=== PATIENT | female | born 1975 | race Caucasian/White ===

== ENCOUNTER 2024-08-22 08:17 | Emergency (ER) | payer BC, SELFPAY ==
[2024-08-22 08:26] VITALS: BP 149/89; PULSE 70; RESP 16; TEMP 36.8; O2SAT 97; BMI 25.9
--- NOTE | 2024-08-22 08:35 | XR_ITS ---
Examination: AP chest single view Technique one AP portable upright chest single view Exam date and time: August 22, 2024 0938 hours INDICATIONS: Dyspnea shortness of breath this week FINDINGS: Normal heart size Lungs are clear. The osseous structures are intact IMPRESSION: No active disease
--- NOTE | 2024-08-22 08:37 | EDNOTE_ITS ---
ED Abdominal Pain RME/HPI General Chief Complaint: Shortness of Breath/Dyspnea Stated complaint: SOB, HURTS TO SWALLOW Time seen by provider: 08/22/24 08:29 Arrival date/time: 08/22/24 08:17 RME / HPI RME / HPI narrative: This section includes all my notes and documentations, including HPI, PE, and ED course. Andrew Man MD HPI: 49-year-old female here with about 12-hour history of epigastric pain radiating into the chest with nausea and shortness of breath and odynophagia. No fever or chills. No cough or congestion. No body aches or malaise. No other complaints. ROS: All negative except as documented in HPI. Physical Exam: General: Alert and oriented. Appears anxious. Eyes: Conjunctivae and lids clear. ENT: No nasal congestion. Pharynx normal. Tympanic membrane normal bilaterally. Neck: Supple. No JVD. Heart: RRR. Lungs: No respiratory distress. Good air movement. No rhonchi, wheezing, rales. Chest: No tenderness. Abdomen: Soft with epigastric tenderness. Normal bowel sounds. No distension. No rebound or guarding. Back: No CVA tenderness. Legs: No clubbing, cyanosis, edema. Skin: Warm and dry. Neuro: Alert and oriented X 3. I reviewed all diagnostic test results. My interpretation of the EKG is sinus rhythm with nonspecific ST-T changes. My interpretation of the chest x-ray is no acute findings. Blood tests unremarkable, including negative troponin. At this point, diagnoses include GERD. Treatment here included Zofran and Xanax and famotidine and Protonix. Significant improvement noted subjectively and objectively. Recommended more outpatient workup. Based on my best medical judgment, made decision no further evaluation or treatment indicated at this time. Patient understands and agrees to the discharge instructions customized and printed, see below. Discharge Instructions from Dr. Man printed for you: 1. After extensive evaluation, there is no life-threatening condition, such as heart attack. 2. Your symptoms may be due to GERD, see attached handout. 3. Zofran for nausea/vomiting. Omeprazole in the morning and famotidine in the evening as needed for acid reflux symptoms. Xanax for anxiety. Whether they help or not will be valuable information to your private doctors. 4. See a private doctor on 08/23/2024. To make sure there is no serious intra-abdominal condition, ask for help with more investigation not available here in the ER. Such as EGD or scoping the stomach, colonoscopy or scoping the colon, and referral to see vocational technical education director. To make sure there is no serious underlying heart condition, ask to help you get more tests for your heart that cannot be done here in the ER. Such as Holter Monitor (cardiac monitoring at home from a day to even a month), heart stress test (on treadmill or with medication), echocardiogram (imaging of your heart structures), heart catherization (checking for blockages in your heart arteries), and a referral to see a Air And Water Filler. 5. Seek immediate medical care with worsening or with any concerns. Andrew Man MD Related Data Previous Rx's ?Medication ?Instructions ?Recorded alprazolam 0.5 mg tablet (Xanax) 0.5 mg PO BID PRN anxiety #10 tabs 08/22/24 famotidine 40 mg tablet 40 mg PO QDAY #30 tabs 08/22/24 omeprazole 40 mg capsule,delayed 40 mg PO QDAY #30 caps 08/22/24 release ondansetron 4 mg disintegrating 4 mg PO TID PRN nausea and 08/22/24 tablet vomiting 5 days #10 tabs Allergies Allergy/AdvReac Type Severity Reaction Status Date / Time Sulfa (Sulfonamide Allergy Verified 08/22/24 08:20 Antibiotics) Course Quality Measures none Orders Category Date Time Status EKG (ED ONLY) *Do not use* NOW Care 08/22/24 08:35 Completed EKG (ED Only) Stat Exams 08/22/24 08:35 Ordered XR chest 1V portable Stat Exams 08/22/24 08:35 Completed Amylase Stat Lab 08/22/24 08:55 Completed CBC Stat Lab 08/22/24 08:55 Completed CMP [Comprehensive Metabolic Panel] Stat Lab 08/22/24 08:55 Completed Lipase Stat Lab 08/22/24 08:55 Completed Magnesium Stat Lab 08/22/24 08:55 Completed Troponin I Stat Lab 08/22/24 08:55 Completed ALPRazoLAM [Xanax] Med 08/22/24 08:34 Discontinued 0.5 mg PO X1 ONE Famotidine [Pepcid] Med 08/22/24 08:34 Discontinued 40 mg PO X1 ONE Ondansetron Odt [Zofran Odt] Med 08/22/24 08:34 Discontinued 4 mg PO X1 ONE Pantoprazole [Protonix] Med 08/22/24 08:34 Discontinued 40 mg PO X1 ONE Vital Signs Vital signs: Vital Signs Temperature 98.2 F 08/22/24 08:26 Pulse Rate 70 08/22/24 08:26 Respiratory Rate 16 08/22/24 08:26 Blood Pressure 149/89 H 08/22/24 08:26 Pulse Oximetry (%) 97 08/22/24 08:26 Oxygen Delivery Method Room Air 08/22/24 08:26 Abdominal Pain MDM Patient data External records reviewed:: None Clinical information provided by:: patient Social determinants that could affect healthcare access:: none Patient has the following chronic illnesses:: Depression and anxiety How is presenting disease/condition affected by chronic disease/condition?: uneffected by Evaluation data The following diagnostics were reviewed and interpreted by me:: lab results, radiology exam(s) and EKG tracing(s) (My interpretation of the EKG is: Sinus rhythm (65 bpm) with nonspecific ST-T changes. Andrew Man MD) Lab and/or radiology exams considered but not ordered:: None Interpretation Summary: Normal diagnostic tests Medications / Prescriptions Medications or Prescriptions considered but not ordered:: None Medication administrations:: Medication Administration History Discontinued Medications Alprazolam (Alprazolam 0.25 Mg Tablet) 0.5 mg PO X1 ONE Stop: 08/22/24 08:35 Last Admin: 08/22/24 09:18 Dose: 0.5 mg Documented By: AM Famotidine (Famotidine 20 Mg Tablet) 40 mg PO X1 ONE Stop: 08/22/24 08:35 Last Admin: 08/22/24 09:18 Dose: 40 mg Documented By: AM Ondansetron HCl (Ondansetron Odt 4 Mg Tabrap) 4 mg PO X1 ONE; Protocol Stop: 08/22/24 08:35 Last Admin: 08/22/24 09:18 Dose: 4 mg Documented By: AM Pantoprazole Sodium (Pantoprazole 40 Mg Tablet) 40 mg PO X1 ONE Stop: 08/22/24 08:35 Last Admin: 08/22/24 09:18 Dose: 40 mg Documented By: AM Zofran and Xanax and famotidine and Protonix Consultations Consultation(s) initiated? (list below): No Diagnosis Differential diagnosis abdominal pain: pancreatitis and other (AK, GERD, anxiety) Most likely diagnosis given after review of the tests above:: GERD Admission Indicated Admission indicated?: not indicated Explain why admission is indicated or not indicated:: Admission criteria not met Admission Request Was there a request for admission?: No Disposition Plan Disposition Plan: Discharge Discharge Attestation Discharge Attestation: The patient and all family members were given an opportunity to ask questions and understood the discharge instructions. Discharge instructions specifically effects, indications for sooner follow up or return to the emergency department, and the expected course of current diagnosis. Patient condition: Stable Discharge Plan Plan Patient Disposition: HOME (Self Care) Prescriptions/Referrals Prescriptions/Med Rec: New famotidine 40 mg tablet 40 mg PO QDAY Qty: 30 0RF omeprazole 40 mg capsule,delayed release(DR/EC) 40 mg PO QDAY Qty: 30 0RF ondansetron 4 mg tablet,disintegrating 4 mg PO TID PRN (Reason: nausea and vomiting) 5 Days Qty: 10 0RF alprazolam [Xanax] 0.5 mg tablet 0.5 mg PO BID PRN (Reason: anxiety) Qty: 10 0RF Referrals: Brendan Branham MD [Primary Care Provider] - In 1 week Problem List Clinical Impression: GERD (gastroesophageal reflux disease) Patient/Caregiver Discharge Instructions Education Materials: ED GERD (Adult) Additional Instructions: Discharge Instructions from Dr. Man printed for you: 1. After extensive evaluation, there is no life-threatening condition, such as heart attack. 2. Your symptoms may be due to GERD, see attached handout. 3. Zofran for nausea/vomiting. Omeprazole in the morning and famotidine in the evening as needed for acid reflux symptoms. Xanax for anxiety. Whether they help or not will be valuable information to your private doctors. 4. See a private doctor on 08/23/2024. To make sure there is no serious intra-abdominal condition, ask for help with more investigation not available here in the ER. Such as EGD or scoping the stomach, colonoscopy or scoping the colon, and referral to see vocational technical education director. To make sure there is no serious underlying heart condition, ask to help you get more tests for your heart that cannot be done here in the ER. Such as Holter Monitor (cardiac monitoring at home from a day to even a month), heart stress test (on treadmill or with medication), echocardiogram (imaging of your heart structures), heart catherization (checking for blockages in your heart arteries), and a referral to see a Air And Water Filler. 5. Seek immediate medical care with worsening or with any concerns. Print Language: Hong Konger Stand Alone Forms: Meena Award Info., Patient Portal Info Letter
[2024-08-22] MEDS: FAMOTIDINE 20 MG TABLET 40 MG PO (09:18)
[2024-08-22] MEDS: ONDANSETRON ODT 4 MG TABRAP PO (09:18)
[2024-08-22] MEDS: PANTOPRAZOLE 40 MG TABLET PO (09:18)
[2024-08-22] MEDS: ALPRazoLAM 0.25 MG TABLET 0.5 MG PO (09:18)
[2024-08-22 09:26] LABS: Basophils % (Auto) 1 % (0-2.5); Eosinophils # (Auto) 0.2 Thou/mm3 (0.0-0.5); Eosinophils % (Auto) 4 % (0-10); Hemoglobin 12.4 g/dL (12.0-16.0); Immature Granulocytes % (Auto) 0 % (0-0); Immature Granulocytes Auto 0.01 Thou/mm3 (0.00-0.00); Lymphocytes # (Auto) 1.5 Thou/mm3 (1.0-4.8); Lymphocytes % (Auto) 23 % (10-50); Mean Corpuscular HGB Conc 33.5 g/dl (31.0-37.0); Mean Corpuscular Hemoglobin 28.1 pg (25.0-35.0); Mean Corpuscular Volume 84 fL (80-100); Monocytes # (Auto) 0.6 Thou/mm3 (0.0-0.8); Monocytes % (Auto) 9 % (0-12); Neutrophils % (Auto) 64 % (37-80); Nucleated Red Blood Cell % 0 /100 WBC (0); Platelet Count 354 Thou/mm3 (140-440); RDW Standard Deviation 38.8 fL (36.4-46.3); Red Blood Count 4.42 Miln/mm3 (4.00-5.20); White Blood Count 6.3 Thou/mm3 (3.6-11.0)
[2024-08-22 09:33] VITALS: BP 136/94; PULSE 71; RESP 20; O2SAT 98
[2024-08-22 10:06] LABS: Alanine Aminotransferase 13 U/L (10-49); Albumin, Serum 4.9 gm/dL (3.5-5.0); Albumin/Globulin Ratio 2.1 (1.2-2.2); Alkaline Phosphatase 60 U/L (46-116); Amylase 72 U/L (30-118); Anion Gap 5 (7-16); BUN/Creatinine Ratio 11 Ratio (12-20); Bilirubin,Total 0.5 mg/dL (0.3-1.2); Blood Urea Nitrogen 9 mg/dL (9-23); Carbon Dioxide 25.6 mMol/L (20.0-31.0); Chloride 105 mMol/L (98-107); Creatinine (Component) 0.8 mg/dL (0.6-1.3); Estimated Creatinine Clearance 97.3 mL/min (>60); Globulin 2.3 gm/dL (2.3-3.5); Glucose 85 mg/dL (74-106); Lipase 39 U/L (12-53); Osmolality,Calculated 269 (275-295); Potassium 4.6 mMol/L (3.4-5.1); Sodium 136 mMol/L (136-145); Total Protein 7.2 gm/dL (5.7-8.2); Troponin I < 0.020 ng/mL (0.0-0.045); eGFR > 60 See Note
[2024-08-22 10:09] LABS: Aspartate Amino Transferase 14 U/L (0-34)
[2024-08-22 10:54] VITALS: BP 133/82; PULSE 69; RESP 19; O2SAT 97
== END 2024-08-22 10:57 | disposition home or self-care (01) ==
PROVIDERS: Emergency Provider Emergency Medicine; PCP Family Medicine
DX: K21.9 Gastro-esophageal reflux disease without esophagitis (principal); R94.31 Abnormal electrocardiogram [ECG] [EKG]; R06.02 Shortness of breath
CPT/HCPCS: 36415; 71045; 80053; 82150; 83690; 83735; 84484; 85025; 93005; 99283; Q0162; A9270

== ENCOUNTER → 2024-12-17 | Outpatient (CLI) | payer BC, SELFPAY ==
[2024-12-17 14:38] LABS: Free T4 (Free Thyroxine) 1.22 ng/dL (0.89-1.76); Thyroid Stimulating Hormone 1.12 uIU/mL (0.55-4.78)
== END | disposition home or self-care (01) ==
PROVIDERS: PCP Physician Assistant; Referring Provider Physician Assistant; Visit Provider Physician Assistant
DX: Z00.00 Encounter for general adult medical examination without abnormal findings (principal); E03.8 Other specified hypothyroidism
CPT/HCPCS: 36415; 84439; 84443; 84481

== ENCOUNTER 2025-05-21 12:15 | Emergency (ER) | payer BC, SELFPAY ==
--- NOTE | 2025-05-21 12:21 | EKG_ITS ---
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
[2025-05-21 12:30] VITALS: BP 128/74; PULSE 80; RESP 16; TEMP 36.8; O2SAT 99
--- NOTE | 2025-05-21 12:46 | XR_ITS ---
Examination: PA lateral chest 2 views TECHNIQUE: Upright PA lateral chest 2 views Date and time: May 21, 2025 1309 hours, comparison August 22, 2024 INDICATIONS: Acute chest pain today. FINDINGS: Moderate hyperexpansion. Normal heart size. No pneumonia or pulmonary edema IMPRESSION: Moderate hyperexpansion No pneumonia or pulmonary edema
--- NOTE | 2025-05-21 12:47 | PD.EDCHEST ---
ED Chest Pain RME/HPI General Chief Complaint: Chest Pain Stated Complaint: CHEST PAIN SINCE 6:30AM Source: patient Arrival date/time: 05/21/25 12:15 50-year-old female with no known medical history presents to the emergency room with a chief complaint of sternal chest pain that radiates to her neck and left arm that began this morning at 6:30 AM. Mode of arrival: ambulatory Limitations: no limitations Related Data Previous Rx's ?Medication ?Instructions ?Recorded alprazolam 0.5 mg tablet (Xanax) 0.5 mg PO BID PRN anxiety #10 tabs 08/22/24 famotidine 40 mg tablet 40 mg PO QDAY #30 tabs 08/22/24 omeprazole 40 mg capsule,delayed 40 mg PO QDAY #30 caps 08/22/24 release Allergies Allergy/AdvReac Type Severity Reaction Status Date / Time Sulfa (Sulfonamide Allergy Verified 05/21/25 12:18 Antibiotics) ED Exam General Limitations: Present no limitations Course Orders Category Date Time Status EKG (ED ONLY) *Do not use* NOW Care 05/21/25 12:21 Completed EKG (ED Only) Stat Exams 05/21/25 12:21 Draft XR chest 2V Stat Exams 05/21/25 12:46 Ordered B-Type Natriuretic Peptide Stat Lab 05/21/25 12:46 Ordered CBC Stat Lab 05/21/25 12:46 Ordered Comprehensive Metabolic Panel Stat Lab 05/21/25 12:46 Ordered Drug Screen,Urine Stat Lab 05/21/25 12:46 Ordered Troponin I Stat Lab 05/21/25 12:46 Ordered Urinalysis, C/S if Indicated Stat Lab 05/21/25 12:46 Ordered Vital Signs Vital signs: Vital Signs Temperature 98.2 F 05/21/25 12:30 Pulse Rate 80 05/21/25 12:30 Respiratory Rate 16 05/21/25 12:30 Blood Pressure 128/74 05/21/25 12:30 Pulse Oximetry (%) 99 05/21/25 12:30 Oxygen Delivery Method Room Air 05/21/25 12:30 Discharge Plan Prescriptions/Referrals Prescriptions/Med Rec: No Action famotidine 40 mg tablet 40 mg PO QDAY Qty: 30 0RF omeprazole 40 mg capsule,delayed release(DR/EC) 40 mg PO QDAY Qty: 30 0RF alprazolam [Xanax] 0.5 mg tablet 0.5 mg PO BID PRN (Reason: anxiety) Qty: 10 0RF Patient/Caregiver Discharge Instructions Print Language: Somali
--- NOTE | 2025-05-21 12:47 | PD.EDRME ---
Rapid Medical Screening Exam RME Arrival date/time: 05/21/25 12:15 50-year-old female with no known medical history presents to the emergency room with a chief complaint of sternal chest pain that radiates to her neck and left arm that began this morning at 6:30 AM. I have greeted and performed a focused initial assessment of this patient. A comprehensive ED assessment and evaluation of the patient, analysis of all test results, and completion of the medical decision making process will be conducted by additional ED providers. Chief Complaint: Chest Pain Vital signs: Vital Signs Temperature 98.2 F 05/21/25 12:30 Pulse Rate 80 05/21/25 12:30 Respiratory Rate 16 05/21/25 12:30 Blood Pressure 128/74 05/21/25 12:30 Pulse Oximetry (%) 99 05/21/25 12:30 Oxygen Delivery Method Room Air 05/21/25 12:30 Vital signs reviewed by provider: Yes
[2025-05-21 13:17] LABS: Basophils # (Auto) 0.1 Thou/mm3 (0.0-0.2); Basophils % (Auto) 1 % (0-2.5); Eosinophils # (Auto) 0.1 Thou/mm3 (0.0-0.5); Eosinophils % (Auto) 2 % (0-10); Hematocrit 37.9 % (36.0-46.0); Hemoglobin 12.5 g/dL (12.0-16.0); Immature Granulocytes Auto 0.02 Thou/mm3 (0.00-0.00); Lymphocytes # (Auto) 2.0 Thou/mm3 (1.0-4.8); Lymphocytes % (Auto) 23 % (10-50); Mean Corpuscular HGB Conc 33.0 g/dl (31.0-37.0); Mean Corpuscular Hemoglobin 29.3 pg (25.0-35.0); Mean Corpuscular Volume 89 fL (80-100); Monocytes # (Auto) 0.6 Thou/mm3 (0.0-0.8); Monocytes % (Auto) 7 % (0-12); Neutrophils # (Auto) 5.8 Thou/mm3 (1.8-7.7); Neutrophils % (Auto) 68 % (37-80); Nucleated Red Blood Cell # 0.00 Thou/mm3 (0.00-0.00); Nucleated Red Blood Cell % 0 /100 WBC (0); Platelet Count 418 Thou/mm3 (140-440); RDW Standard Deviation 42.3 fL (36.4-46.3); Red Blood Count 4.26 Miln/mm3 (4.00-5.20); White Blood Count 8.5 Thou/mm3 (3.6-11.0)
[2025-05-21 13:35] LABS: B-Type Natriuretic Peptide 30 pg/mL (0-100)
[2025-05-21 13:37] LABS: Alanine Aminotransferase 13 U/L (10-49); Albumin, Serum 4.7 gm/dL (3.5-5.0); Albumin/Globulin Ratio 1.7 (1.2-2.2); Alkaline Phosphatase 52 U/L (46-116); Anion Gap 11 (7-16); Aspartate Amino Transferase 14 U/L (0-34); BUN/Creatinine Ratio 11 Ratio (12-20); Bilirubin,Total 0.6 mg/dL (0.3-1.2); Blood Urea Nitrogen 9 mg/dL (9-23); Calcium 9.7 mg/dL (8.3-10.6); Calcium (Corrected) 9.7 mg/dL (8.5-10.1); Carbon Dioxide 24.4 mMol/L (20.0-31.0); Chloride 104 mMol/L (98-107); Creatinine (Component) 0.8 mg/dL (0.6-1.3); Estimated Creatinine Clearance 88.9 mL/min (>60); Globulin 2.7 gm/dL (2.3-3.5); Glucose 96 mg/dL (74-106); Osmolality,Calculated 276 (275-295); Potassium 4.4 mMol/L (3.4-5.1); Sodium 139 mMol/L (136-145); Total Protein 7.4 gm/dL (5.7-8.2); Troponin I < 0.002 ng/mL (0.0-0.045); eGFR > 60 See Note
[2025-05-21 14:00] LABS: Collection Type, Urine Clean Catch
[2025-05-21 14:08] LABS: Bilirubin,Urine Negative (Negative); Blood,Urine 1+ (Negative); Clarity,Urine Clear (Clear/Hazy); Color,Urine Lt-Yellow (Lt Yel-Yel); Culture Indicated,Urine Not Indicated; Glucose, Urine Negative (Negative); Ketones,Urine Trace (Negative); Leukocyte Esterase,Urine Negative (Negative); Nitrite,Urine Negative (Negative); PH,Urine 6.5 (5.0-7.0); Protein,Urine Negative (Neg - Trace); RBC,Urine 7 /hpf (0-3); Specific Gravity,Urine 1.014 (1.001-1.035); Squamous Epithelial Cell,Urine 2 /hpf (0-5); Urobilinogen,Urine Negative mg/dL (0.0-1.0); WBC,Urine 2 /hpf (0-5)
[2025-05-21 14:15] LABS: Amphetamine/Methamp Scrn,U Negative (Negative); Barbiturate Screen,Urine Negative (Negative); Benzodiazepines Screen,Urine Negative (Negative); Benzoylecgonine Screen, Ur Negative (Negative); Fentanyl Screen,Urine Negative (Negative); Opiate Screen,Urine Negative (Negative); THC Screen,Urine Negative (Negative)
[2025-05-21 14:49] VITALS: BP 125/77; PULSE 67; RESP 16; TEMP 36.6; O2SAT 97
--- NOTE | 2025-05-21 15:13 | EDNOTE_ITS ---
ED General RME/HPI General Chief complaint: Chest Pain Stated complaint: CHEST PAIN SINCE 6:30AM Time Seen by Provider: 05/21/25 15:03 Arrival date/time: 05/21/25 12:15 CC: Chest pain center anterior that radiates up into her left neck and left shoulder under her left breast, all reproducible with palpation no prior history of similar events patient is very anxious states onset was 630 this morning. No OTC medicines taken patient is awake alert oriented nontoxic. Denies any nausea vomiting abdominal pain shortness of breath or difficulty breathing. Localized pain is 2-3 out of 10 scale both pressure and pain. RME / HPI RME / HPI narrative: 05/21/25 12:15 50-year-old female with no known medical history presents to the emergency room with a chief complaint of sternal chest pain that radiates to her neck and left arm that began this morning at 6:30 AM. I have greeted and performed a focused initial assessment of this patient. A comprehensive ED assessment and evaluation of the patient, analysis of all test results, and completion of the medical decision making process will be conducted by additional ED providers. Related Data Previous Rx's ?Medication ?Instructions ?Recorded alprazolam 0.5 mg tablet (Xanax) 0.5 mg PO BID PRN anx iety #10 tabs 08/22/24 famotidine 40 mg tablet 40 mg PO QDAY #30 tabs 08/22 omeprazole 40 mg capsule,delayed 40 mg PO QDAY #30 cap s 08/22/24 release pantoprazole 20 mg tablet,delayed 20 mg PO QDAY #30 ta bs 05/21/25 release (Protonix) Allergies Allergy/AdvReac Type Severity Reaction Status Date / Time Sulfa (Sulfonamide Allergy Verified 05/21/25 12:18 Antibiotics) Review of Systems Review of Systems Narrative Review of Systems: GEN: No fever, no chills, no weight loss EYES: No discharge, no visual changes, no pain HEENT: No ear pain, no congestion, no sore throat PULM: No shortness of breath, no cough, no congestion CV: + chest pain, no dyspnea on exertion, no palpitations GI: No nausea, no vomiting, no diarrhea, no pain, no constipation : No frequency, no urgency, no dysuria MUSC/SKEL: No joint pain, no back pain SKIN: No rash PSYCH: No hallucinations, no depression HEME/LYMPH: No easy bleeding or bruising tendencies NEURO: No weakness, no headache Past Medical History Past Medical History NEUROLOGIC: Positive Migraine; Negative Neurological Disorders CARDIAC: Negative Cardiac Disorders or Congestive Heart Failure RESPIRATORY: Negative Chronic Obstructive Pulmonary Disease (COPD) GASTROINTESTINAL: Negative Gastrointestinal Disorders GENITOURINARY: Positive Renal Disease (KIDNEY STONES) and Kidney Stones MUSCULOSKELETAL: Negative Musculoskeletal Disorders ENDOCRINE: Negative Endocrine Disorders, Diabetes Mellitus Type 1 or Diabetes Mellitus Type 2 HEMATOLOGIC: Negative Blood Disorders PSYCHO/SOCIAL: Positive Depression, Anxiety and Post Traumatic Stress Disorder Family History FAMILY HISTORY: Positive Family Cardiac Disorders (FATHER CHF) Surgical History SURGICAL: Positive Thyroidectomy (PARTIAL THYROIDECTOMY 04/2022) Social History SMOKING STATUS: Never smoker ED Exam Narrative Physical exam: [General: Anxious but not in any acute distress Head normocephalic HEENT: Within acceptable limits Neck is supple nontender Chest equal chest rise nontender to palpation Respiratory: Clear to auscultation no wheezes crackles or rubs CV: Rate rhythm is regular no murmurs rubs or clicks Abdomen is soft nontender no masses positive bowel sounds all 4 quadrants Back: No CVA tenderness no spinous process tenderness from cervical spine thoracic and lumbar spine Skin: Intact no petechiae rash induration ulceration or crepitus Extremities: Moving all extremity against resistance cap refill less than 2 seconds neurosensory intact Neuro: Awake alert oriented x3 Glascow coma 15 no focal deficits] Course Course Course Narrative: The way the patient describes that this may also be heartburn it is radiation the patient is quite anxious this time we will give the patient Protonix and have her start on a bland diet for the next week to see if this alleviates it otherwise patient can follow-up with a primary care provider or return to the emergency room. Quality Measures none Orders Category Date Time Status EKG (ED ONLY) *Do not use* NOW Care 05/21/25 12:21 Completed EKG (ED Only) Stat Exams 05/21/25 12:21 Draft XR chest 2V Stat Exams 05/21/25 12:46 Completed B-Type Natriuretic Peptide Stat Lab 05/21/25 13:12 Completed CBC Stat Lab 05/21/25 13:12 Completed Comprehensive Metabolic Panel Stat Lab 05/21/25 13:12 Completed Drug Screen,Urine Stat Lab 05/21/25 13:45 Completed Troponin I Stat Lab 05/21/25 13:12 Completed Urinalysis, C/S if Indicated Stat Lab 05/21/25 13:45 Completed Vital Signs Vital signs: Vital Signs Temperature 98.2 F 05/21/25 12:30 Pulse Rate 80 05/21/25 12:30 Respiratory Rate 16 05/21/25 12:30 Blood Pressure 128/74 05/21/25 12:30 Pulse Oximetry (%) 99 05/21/25 12:30 Oxygen Delivery Method Room Air 05/21/25 12:30 Discharge Plan Plan Patient Disposition: HOME (Self Care) Patient condition on transfer: Stable Prescriptions/Referrals Prescriptions/Med Rec: New pantoprazole [Protonix] 20 mg tablet,delayed release (DR/EC) 20 mg PO QDAY Qty: 30 0RF No Action famotidine 40 mg tablet 40 mg PO QDAY Qty: 30 0RF omeprazole 40 mg capsule,delayed release(DR/EC) 40 mg PO QDAY Qty: 30 0RF alprazolam [Xanax] 0.5 mg tablet 0.5 mg PO BID PRN (Reason: anxiety) Qty: 10 0RF Referrals: Brendan Branham MD [Primary Care Provider] - In 1 week Problem List Clinical Impression: Atypical chest pain Patient/Caregiver Discharge Instructions Education Materials: ED Diet, [place] (Adult), ED Chest Pain, Uncertain Cause Print Language: Bulgarian Stand Alone Forms: Meena Award Info., Patient Portal Info Letter, Work/School Release PA/WAITER/WAITRESS DINING CAR Supervising Physician PA/WAITER/WAITRESS DINING CAR Supervising Physician: Davey Whitt ENP [facility] Clinical Information Provided by patient Medical Records Reviewed [facility] Meds/Rx Considered, not Ordered None Labs/Rad/Tests considered, not Ordered None Chronic Illness/Social Conditions which may negatively complicate care or outcome(s)-explain: None or not applicable EKG EKG Interpretation narrative: EKG performed at 1232 shows a ventricular rate of 76 HI interval of 128 QRS of 76 QTc of 428 is normal sinus rhythm. Lab Interpretation Labs: interpreted by me Lab(s) interpretation(s): CBC shows no acute leukocytosis anemia thrombocytopenia CMP shows no significant electrolyte imbalances renal impairment transaminitis or T. bili elevation Troponin is negative BMP is within acceptable limits Urine is negative for urinary tract infection 1+ blood RBCs at 7 no bacteria no leukocyte esterase Imaging Imaging interpretation: interpreted by me Provider imaging interpretation(s): Chest x-ray as interpreted by me read by radiology as negative for any acute finding requires emergent or immediate intervention. Medication Administration(s) none Dispositon Disposition: Discharge Home
== END 2025-05-21 15:49 | disposition home or self-care (01) ==
PROVIDERS: Nurse Practitioner Family; Emergency Provider Emergency Medicine; PCP Family Medicine
DX: R07.9 Chest pain, unspecified (principal)
CPT/HCPCS: 36415; 71046; 80053; 80307; 81001; 83880; 84484; 85025; 93005; 99283